=== PATIENT | male | born 1945 | race Caucasian/White ===

== ENCOUNTER 2016-10-15 12:52 | Emergency (ER) | payer OTHER ==
[~2016-10-15] VITALS: Ht 170.2 cm; Wt 51.4 kg
[~2016-10-15 12:52] MED LIST: NOHOMEMEDS
[2016-10-15 14:10] VITALS: BP 99/63
== END 2016-10-15 14:25 | disposition home or self-care (01) ==
LOC: EME 12:52
DX: S61.216A Laceration without foreign body of right little finger without damage to nail, initial encounter (principal); S61.214A Laceration without foreign body of right ring finger without damage to nail, initial encounter; W27.1XXA Contact with garden tool, initial encounter; Y93.H2 Activity, gardening and landscaping
CPT/HCPCS: 99281; 99284

== ENCOUNTER 2017-05-29 02:36 | Emergency (ER) | payer OTHER ==
[~2017-05-29] VITALS: Ht 170.2 cm; Wt 52.2 kg
[2017-05-29] MEDS ORDERED: ROBITUSSIN100 MG/5 M PO (03:57)
[2017-05-29] MEDS ORDERED: VENTOLIN HFA18 GM IH (03:57)
[2017-05-29 04:06] VITALS: BP 103/62
== END 2017-05-29 04:11 | disposition home or self-care (01) ==
LOC: EME 02:36
DX: R05 Cough (principal); E78.00 Pure hypercholesterolemia, unspecified
CPT/HCPCS: 71046; 99281; 99284

== ENCOUNTER 2017-06-10 09:24 | Emergency (ER) | payer OTHER ==
[~2017-06-10] VITALS: Ht 170.2 cm; Wt 97.3 kg
[~2017-06-10 09:24] MED LIST changes: +ROBITUSSIN100 MG/5 M PO; +VENTOLIN HFA18 GM IH
[2017-06-10] MEDS ORDERED: VALTREX1000 MG PO (11:28)
[2017-06-10 11:39] VITALS: BP 108/62
== END 2017-06-10 11:40 | disposition home or self-care (01) ==
LOC: EME 09:24
DX: B02.9 Zoster without complications (principal); E78.00 Pure hypercholesterolemia, unspecified
CPT/HCPCS: 99281; 99284